=== PATIENT | female | born 1980 | race Caucasian/White ===

== ENCOUNTER → 2018-03-10 | Outpatient (CLI) | payer MEDICAID | LOC: SUN.DIA 13:24 | DX: O24.419 Gestational diabetes mellitus in pregnancy, unspecified control (principal); Z3A.32 32 weeks gestation of pregnancy; Z71.3 Dietary counseling and surveillance; Z87.891 Personal history of nicotine dependence | CPT/HCPCS: G0108 ==

== ENCOUNTER 2018-05-11 04:00 | Inpatient (IN) | payer MEDICAID ==
[~2018-05-11] VITALS: Ht 165.1 cm; Wt 110.9 kg
[2018-05-11] VITALS (30 sets, daily range): BP systolic 114–144; BP diastolic 56–81; PULSE 61–81; TEMP 97.4–98.3
[2018-05-11 05:07] LABS: BASO % 0.3 % (0.0-2.0); EOS # 0.1 (0.0-0.7); EOS % 0.9 % (0-4.0); GRAN # 7.1 (1.4-6.5); GRAN % 73.4 % (42.2-75.2); HEMOGLOBIN 12.4 g/dl (12.5-16.0); LYMPH # 1.7 (1.2-3.4); LYMPH % 17.1 % (20.0-51.0); MEAN CELL VOLUME 88 fl (80.0-100.0); MEAN CORPUSCULAR HEMOGLOBIN 31 pg (27.0-31.0); MEAN CORPUSCULAR HGB CONC 35 g/dl (33.0-37.0); MEAN PLATELET VOLUME 10.9 fl (7.4-10.4); MONO # 0.8 (0.1-0.6); MONO % 7.9 % (1.7-9.3); PLATELET COUNT 208 K/mm3 (130-400); RED BLOOD COUNT 4.06 M/mm3 (4.10-5.30); REDCELL DISTRIBUTION WIDTH-CV 13.3 % (11.5-14.5)
[2018-05-11 05:08] LABS: HEMATOCRIT 35.7 % (37.0-47.0)
[2018-05-11 05:16] LABS: ALBUMIN 3.2 gm/dL (3.5-5.0); BILIRUBIN,TOTAL 0.2 mg/dL (0.0-1.0); CALCIUM 9.5 mg/dL (8.4-10.2); CREATININE, serum 0.53 mg/dL (0.52-1.25); POTASSIUM 3.8 mmol/L (3.4-5.0); TOTAL PROTEIN 6.4 gm/dL (6.4-8.2)
[2018-05-11 06:40] LABS: COLLECTION METHOD CLEAN CATCH
[2018-05-11] MEDS ORDERED: PRENATAL PO (06:49)
[2018-05-11] MEDS ORDERED: TUMS ULTRA ST1000 MG PO (06:50)
[2018-05-11 06:53] LABS: PH 5 (5-8); URINE APPEARANCE Hazy; URINE BACTERIA Rare /hpf; URINE BILIRUBIN Negative (NEGATIVE); URINE BLOOD 1+ (NEGATIVE); URINE COLOR Yellow; URINE GLUCOSE Negative (NEGATIVE); URINE KETONE Negative (NEGATIVE); URINE LEUKOCYTE ESTERASE 3+ (NEGATIVE); URINE NITRATE Negative (NEGATIVE); URINE PROTEIN(semi-quant) Negative (NEGATIVE); URINE UROBILINOGEN Negative (NEGATIVE)
[2018-05-12] MEDS ORDERED: IBU600 MG PO (07:59)
[2018-05-12 08:40] VITALS: BP 135/76; PULSE 62; TEMP 97.4
[2018-05-12 16:00] VITALS: BP 108/47; PULSE 78; TEMP 98.1
[2018-05-12 20:00] VITALS: BP 128/66; PULSE 82; TEMP 97.8
[2018-05-13 08:50] VITALS: BP 126/65; PULSE 74; TEMP 98
== END 2018-05-13 11:40 | disposition home or self-care (01) | DRG 775 ==
LOC: LDRO 04:00 → OB 04:43 → LDR 04:43 → OB 14:00
PROVIDERS: Obstetrics & Gynecology
PROC: 10E0XZZ Delivery of Products of Conception, External Approach (ICD-10-PCS; principal; 2018-05-11)
PROC: 0HQ9XZZ Repair Perineum Skin, External Approach (ICD-10-PCS; 2018-05-11)
DX: O24.429 Gestational diabetes mellitus in childbirth, unspecified control (principal); O48.0 Post-term pregnancy; O69.1XX0 Labor and delivery complicated by cord around neck, with compression, not applicable or unspecified; O70.0 First degree perineal laceration during delivery; Z37.0 Single live birth; Z3A.40 40 weeks gestation of pregnancy
CPT/HCPCS: J2540; J2590; J7120